=== PATIENT | male | born 1930 | race Caucasian/White ===

== ENCOUNTER 2018-03-12 19:57 | Observation (INO) | payer OTHER ==
[2018-03-12] MEDS ORDERED: FUROSEMIDE 40 MG/4 ML VIAL ONE (21:05)
[2018-03-12 21:26] LABS: Absolute Lymphocytes (CBC) 1.4 K/uL (0.7-4.9); Absolute Monocytes 0.8 K/uL (0.1-1.3); Absolute Neutrophil 5.1 K/uL (1.8-8.0); Basophils % 0.7 % (0-1.3); Eosinophils % 1.7 % (0-4.4); Lymphocytes % 19.1 % (15.3-44.8); MCH 31.2 pg (27.0-35.0); MCV 92.1 fL (80-100); MPV 10.2 fL (7.6-11.3); Monocytes % 10.6 % (3.3-12.3); RBC Red Blood Cell Count 4.13 M/uL (4.33-5.43)
[2018-03-12 21:28] LABS: Protime INR 1.1
[2018-03-12 21:32] LABS: Potassium 4.3 mEq/L (3.6-5.0)
[2018-03-12 21:38] LABS: Albumin 3.3 g/dL (3.2-5.5); Bilirubin Direct 0.2 mg/dL (0-0.2); Bilirubin Total 0.8 mg/dL (0.3-1.2); Protein, Total 5.9 g/dL (6.0-8.3)
--- NOTE | 2018-03-12 22:40 | ER ---
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 pt with swelling noted ak1 to bilateral lower legs. pt stated "just give me the water shot". Transition of care: patient was not received from another setting of care. Onset of symptoms was March 07, 2018. Risk Assessment: Do you want to hurt yourself or someone else? Patient reports no desire to harm self or others. Initial Sepsis Screen: Does the patient meet any 2 criteria? No. Patient's initial sepsis screen is negative. Does the patient have a suspected source of infection? No. Patient's initial sepsis screen is negative. Care prior to arrival: None. 20:07 Method Of Arrival: Wheelchair ak1 20:07 Acuity: KELSEY 3 ak1 20:[address] Middleton, Director Of Neurology Dr. Edmondson. ak1 Triage Assessment: 23:00 General: Appears uncomfortable. General: Behavior is calm, cooperative, appropriate for mb3 age. Respiratory: Onset: The symptoms/episode began/occurred gradually. Respiratory: Reports shortness of breath at rest the patient has moderate shortness of breath. Historical: - Allergies: 20:10 No Known Allergies; ak1 - Home Meds: 20:10 carvedilol 25 mg oral tab 2 times per day [Active]; Eliquis 2.5 mg oral tab 2 times per ak1 day [Active]; lisinopril 10 mg oral tab twice a day [Active]; aspirin 81 mg Oral chew 1 tab once daily [Active]; - PMHx: 20:10 CHF; Pacemaker; ak1 - PSHx: 20:10 Hernia repair; pacemaker/defib; ak1 - Immunization history:: Adult Immunizations unknown. - Social history:: Smoking status: Patient/guardian denies using tobacco. - Ebola Screening: : No symptoms or risks identified at this time. Screenin:58 Abuse screen: Denies threats or abuse. Nutritional screening: No deficits noted. mb3 Tuberculosis screening: No symptoms or risk factors identified. Fall Risk None identified. Assessment: 20:10 Respiratory: Airway. ak1 20:40 General: Appears uncomfortable, Behavior is calm, cooperative, appropriate for age. mb3 Pain: Complains of pain in right foot and left foot. Neuro: Level of Consciousness is awake, alert, obeys commands, Oriented to person, place, time, situation, Development And Housing Director are equal bilaterally. Cardiovascular: Reports shortness of breath, Denies chest pain, Heart tones present Capillary refill < 3 seconds Patient's skin is warm and dry. Pulses are palpable in right radial artery, right dorsalis pedis artery, left radial artery and left dorsalis pedis artery Rhythm is A-V sequential pacer. Respiratory: Airway is patent Respiratory effort is even, labored, Respiratory pattern is regular, symmetrical, Breath sounds are clear Breath sounds are diminished bilaterally. in right middle lobe, left lower lobe, right lower lobe, left posterior lower lobe, right posterior middle lobe and right posterior lower lobe. GI: No signs and/or symptoms were reported involving the gastrointestinal system. : No signs and/or symptoms were reported regarding the genitourinary system. EENT: No signs and/or symptoms were reported regarding the EENT system. Vital Signs: 20:07 BP 127 / 80; Pulse 96; Resp 20; Temp 98.4; Pulse Ox 96% on R/A; Weight 90.72 kg (R); ak1 Height 5 ft. 5 in. (165.10 cm); Pain 10/10; 21:17 BP 127 / 91; Pulse 81; Resp 20; Pulse Ox 97% on R/A; mb3 23:02 BP 127 / 92; Pulse 95; Resp 18; Pulse Ox 96% on R/A; mb3 20:07 Body Mass Index 33.28 (90.72 kg, 165.10 cm) ak1 ED Course: 20:00 Patient arrived in ED. es 20:01 Roderick Middleton DO is Private Physician. es 20:07 Layo Villanueva, SOFIYA is Primary Nurse. mb3 20:08 Triage completed. ak1 20:10 Arm band placed on Patient placed in an exam room, on a stretcher, Patient notified of ak1 wait time. 20:23 Michael Fatima MD is Attending Physician. kdr 21:42 X-ray completed. Portable x-ray completed in exam room. Patient tolerated procedure ag1 well. 21:45 XRAY Chest (1 view) In Process Unspecified. EDMS 22:39 Judith Dykes MD is Hospitalizing Provider. kdr 22:58 Patient has correct armband on for positive identification. Placed in gown. Bed in low mb3 position. Call light in reach. loan secretary on. Pulse ox on. NIBP on. 23:47 No provider procedures requiring assistance completed. Patient admitted, IV remains in mb3 place. Administered Medications: 21:10 Drug: Lasix 40 mg Route: IVP; Site: right forearm; mb3 22:55 Follow up: Response: No adverse reaction mb3 23:50 Follow up: Response: No adverse reaction mb3 Outcome: 22:40 Decision to Hospitalize by Provider. kdr 23:47 Admitted to Tele accompanied by tech, via wheelchair, room 202, with chart, Report mb3 called to Maddy Mera RN 23:47 Condition: stable 23:47 Instructed on the need for admit. 23:50 Patient left the ED. mb3 Signatures: Dispatcher [employer] Michael Olvera MD MD kdr Carrol Browning Amber, RN RN [email or web address] Sandra [email or web address] Layo Villanueva, RN RN mb3
--- NOTE | 2018-03-12 22:40 | EDPHYS ---
Physician Documentation [facility] Name: Javy Ferreira Age: 87 yrs Sex: Male : 1930 Arrival Date: 03/12/2018 Time: 20:00 Bed 15 Private MD: Roderick Middleton ED Physician Michael Fatima HPI: 03/12 23:51 This 87 yrs old Male presents to ER via Wheelchair with complaints of kdr Breathing Difficulty. 23:51 The patient has shortness of breath at rest, with light activity. Onset: The kdr symptoms/episode began/occurred gradually, 1 week(s) ago. Duration: The symptoms are continuous, and are steadily getting worse. The patient's shortness of breath is aggravated by coughing, exertion, light activity, walking, is alleviated by rest. The patient's shortness of breath is aggravated by is alleviated by. Associated signs and symptoms: Pertinent positives: Pertinent negatives: chest pain, productive cough, diaphoresis, dizziness, fever, hemoptysis, loss of consciousness, nausea, numbness in extremities, visual changes, vomiting. Severity of symptoms: At their worst the symptoms were mild moderate just prior to arrival, in the emergency department the symptoms are unchanged. The patient has experienced similar episodes in the past, multiple times. The patient has not recently seen a physician. Historical: - Allergies: 20:10 No Known Allergies; ak1 - Home Meds: 20:10 carvedilol 25 mg oral tab 2 times per day [Active]; Eliquis 2.5 mg oral tab 2 times per ak1 day [Active]; lisinopril 10 mg oral tab twice a day [Active]; aspirin 81 mg Oral chew 1 tab once daily [Active]; - PMHx: 20:10 CHF; Pacemaker; ak1 - PSHx: 20:10 Hernia repair; pacemaker/defib; ak1 - Immunization history:: Adult Immunizations unknown. - Social history:: Smoking status: Patient/guardian denies using tobacco. - Ebola Screening: : No symptoms or risks identified at this time. ROS: 23:51 Constitutional: Negative for fever, chills, and weight loss, Eyes: Negative for injury, kdr pain, redness, and discharge, ENT: Negative for injury, pain, and discharge, Neck: Negative for injury, pain, and swelling, Cardiovascular: Negative for chest pain, palpitations, and edema, Abdomen/GI: Negative for abdominal pain, nausea, vomiting, diarrhea, and constipation, Back: Negative for injury and pain, : Negative for injury, bleeding, discharge, and swelling, MS/Extremity: Negative for injury and deformity, Skin: Negative for injury, rash, and discoloration, Neuro: Negative for headache, weakness, numbness, tingling, and seizure activity. Psych: Negative for depression, anxiety, suicide ideation, homicidal ideation, and hallucinations, Allergy/Immunology: Negative for hives, rash, and allergies, Endocrine: Negative for neck swelling, polydipsia, polyuria, polyphagia, and marked weight changes, Hematologic/Lymphatic: Negative for swollen nodes, abnormal bleeding, and unusual bruising. 23:51 Respiratory: Positive for cough, dyspnea on exertion, shortness of breath, on exertion. Negative for hemoptysis, orthopnea. Exam: 23:51 Constitutional: This is a well developed, well nourished patient who is awake, alert, kdr and in no acute distress. Head/Face: Normocephalic, atraumatic. Eyes: Pupils equal round and reactive to light, extra-ocular motions intact. Lids and lashes normal. Conjunctiva and sclera are non-icteric and not injected. Cornea within normal limits. Periorbital areas with no swelling, redness, or edema. Neck: Trachea midline, no thyromegaly or masses palpated, and no cervical lymphadenopathy. Supple, full range of motion without nuchal rigidity, or vertebral point tenderness. No Meningismus. Chest/axilla: Normal chest wall appearance and motion. Nontender with no deformity. No lesions are appreciated. Cardiovascular: Regular rate and rhythm with a normal S1 and S2. No gallops, murmurs, or rubs. Normal PMI, no JVD. No pulse deficits. Abdomen/GI: Soft, non-tender, with normal bowel sounds. No distension or tympany. No guarding or rebound. No evidence of tenderness throughout. Back: No spinal tenderness. No costovertebral tenderness. Full range of motion. Skin: Warm, dry with normal turgor. Normal color with no rashes, no lesions, and no evidence of cellulitis. MS/ Extremity: Pulses equal, no cyanosis. Neurovascular intact. Full, normal range of motion. Neuro: Awake and alert, GCS 15, oriented to person, place, time, and situation. Cranial nerves II-XII grossly intact. Motor strength 5/5 in all extremities. Sensory grossly intact. Cerebellar exam normal. Normal gait. Psych: Awake, alert, with orientation to person, place and time. Behavior, mood, and affect are within normal limits. 23:51 Respiratory: the patient does not display signs of respiratory distress, Respirations: normal, Breath sounds: rales, rhonchi, that are mild, are heard diffusely. Vital Signs: 20:07 BP 127 / 80; Pulse 96; Resp 20; Temp 98.4; Pulse Ox 96% on R/A; Weight 90.72 kg (R); ak1 Height 5 ft. 5 in. (165.10 cm); Pain 10/10; 21:17 BP 127 / 91; Pulse 81; Resp 20; Pulse Ox 97% on R/A; mb3 23:02 BP 127 / 92; Pulse 95; Resp 18; Pulse Ox 96% on R/A; mb3 20:07 Body Mass Index 33.28 (90.72 kg, 165.10 cm) ak1 MDM: 22:40 Patient medically screened. kdr 23:51 Data reviewed: vital signs, nurses notes, lab test result(s), radiologic studies. kdr Counseling: I had a detailed discussion with the patient and/or guardian regarding: the historical points, exam findings, and any diagnostic results supporting the discharge/admit diagnosis, lab results, radiology results, the need for further work-up and treatment in the hospital. Physician consultation: Judith Dykes MD. 03/12 20:54 Order name: Basic Metabolic Panel; Complete Time: 22: [facility] 03/12 20:54 Order name: BNP; Complete Time: 22: [facility] 03/12 20:54 Order name: CBC with Diff; Complete Time: 22: [facility] 03/12 20:54 Order name: LFT's; Complete Time: 22: [facility] 03/12 20:54 Order name: Magnesium; Complete Time: 22:25 [facility] 03/12 20:54 Order name: PT-INR; Complete Time: 22: [facility] 03/12 20:54 Order name: Ptt, Activated; Complete Time: 22: [facility] 03/12 20:54 Order name: Troponin (emerg Dept Use Only); Complete Time: 22: [facility] 03/12 20:54 Order name: XRAY Chest (1 view) [facility] 03/12 20:54 Order name: EKG; Complete Time: 20:55 [facility] 03/12 20:54 Order name: Cardiac monitoring; Complete Time: 21:00 [facility] 03/12 20:54 Order name: EKG - Nurse/Tech [facility] 03/12 22:39 Order name: Urine Dipstick--Ancillary (enter results) 03/12 20:54 Order name: IV Saline Lock; Complete Time: 21: [facility] 03/12 20:54 Order name: Labs collected and sent; Complete Time: 21: [facility] 03/12 20:54 Order name: O2 Per Protocol; Complete Time: 21: [facility] 03/12 20:54 Order name: O2 Sat Monitoring; Complete Time: 21: [facility] 03/12 20:54 Order name: Urine Dipstick-Ancillary (obtain specimen) [facility] Administered Medications: 21:10 Drug: Lasix 40 mg Route: IVP; Site: right forearm; mb3 22:55 Follow up: Response: No adverse reaction mb3 23:50 Follow up: Response: No adverse reaction mb3 Disposition: 03/12/18 22:40 Hospitalization ordered by Judith Dykes for Observation. Preliminary diagnosis is CHF exacerbation. - Bed requested for Telemetry/MedSurg (observation). - Status is Observation. mb3 - Condition is Fair. - Problem is an acute exacerbation. - Symptoms have improved. UTI on Admission? No Signatures: Dispatcher [employer] EDDE Cheyenne Lynch RN RN Michael Fatima MD MD [facility] Nancy Noriega RN RN ak1 Layo Villanueva, RN RN mb3 Corrections: (The following items were deleted from the chart) 22:42 22:40 Hospitalization Ordered by Judith Dykes MD for Observation. Preliminary diagnosis is CHF exacerbation. Bed requested for Telemetry/MedSurg (observation). Status is Observation. Condition is Fair. Problem is an acute exacerbation. Symptoms have improved. UTI on Admission? No. kdr 23:50 22:42 03/12/2018 22:40 Hospitalization Ordered by Judith Dykes MD for Observation. mb3 Preliminary diagnosis is CHF exacerbation. Bed requested for Telemetry/MedSurg (observation). Status is Observation. Condition is Fair. Problem is an acute exacerbation. Symptoms have improved. UTI on Admission? No. mw
--- NOTE | 2018-03-12 22:41 | RAD REPORT ---
EXAM DESCRIPTION: Aleisha Single View03/12/2018 9:45 pm CLINICAL HISTORY: sob COMPARISON: January 2017 FINDINGS: The lungs appear clear of acute infiltrate. The heart is mildly to moderately enlarged. P acemaker leads are in place IMPRESSION: No acute abnormalities displayed
[2018-03-12 22:55] LABS: Urine Blood TRACE (NEG); Urine Glucose NEGATIVE (NEG); Urine Protein NEGATIVE (NEG); Urine Specific Gravity 1.015 (1.005-1.030)
--- NOTE | 2018-03-12 23:25 | P.HP ---
Certification for Inpatient Patient admitted to: Observation With expected LOS: <2 Midnights Practitioner: I am a practitioner with admitting privileges, knowledge of patient current condition, hospital course, and medical plan of care. Services: Services provided to patient in accordance with Admission requirements found in Title 42 Section 412.3 of the Code of Federal Regulations Patient History Date of Service: 03/12/18 Reason for admission: CHF exacerbartion History of Present Illness: Mr Ferreira is an 87 years old male with history of chronic systolic CHF with EF about 28%, HTN, Pacemaker placement anticoagulated with Eliquis due to A.Fib, who start noticing slowly increasing in lower extremity edema over the last 3-4 weeks. He denied SOB, but has had some cough with clear secretion. He denied chest pain. Within his home medication, he should take lasix 40 mg daily, but apparently, he has not been taking this medication. At my encounter, he was in non-distress, afebrile, O2 Sat 98% on RA, BP 123/89, CXR consitent with CHF, lab work remarkable for elevated BNP 1798 (similar to previous record) Allergies No Known Allergies Allergy (Verified 12/10/15 17:38) Home Medications: Carvedilol 25 mg PO BID 12/10/15 Furosemide 40 mg PO DAILY 12/10/15 Lisinopril 10 mg PO DAILY 12/10/15 Apixaban [Eliquis] 5 mg PO BID 01/12/17 Amoxicillin Trihydrate [Amoxil] 500 mg PO TID #15 capsule 01/17/17 Fluticasone/Salmeterol [Advair 250/50 Diskus] 1 puff IH BID #1 disk 01/17/17 - Past Medical/Surgical History Diabetic: No -: HTN -: SKIN CANCER -: PROSTATE CANCER -: PNEUMONIA -: SHINGLES X2 -: JUJU KNEE PROBLEMS/ INJECTIONS -: Chronic systolic CHF -: PACEMAKER -: HERNIA REPAIR - Family History Father -: Lung disease Mother -: Cancer Notes: breast cancer - Social History Alcohol use: No CD- Drugs: No Caffeine use: Yes Place of Residence: Home Review of Systems 10-point ROS is otherwise unremarkable Physical Examination - Physical Exam General: Alert, In no apparent distress HEENT: Atraumatic, PERRLA, Mucous membr. moist/pink, EOMI, Sclerae nonicteric Neck: Supple, 2+ carotid pulse no bruit, No LAD, Without JVD or thyroid abnormality Respiratory: Normal air movement, Crackles/rales (bibasilar rales) Cardiovascular: Regular rate/rhythm, Normal S1 S2 Gastrointestinal: Normal bowel sounds, No tenderness Musculoskeletal: No tenderness, Swelling (bilateral LE edema 2+) Integumentary: No rashes Neurological: Normal speech, Normal strength at 5/5 x4 extr, Normal tone, Normal affect Lymphatics: No axilla or inguinal lymphadenopathy - Studies Laboratory Data (last 24 hrs) 03/12/18 20:50: PT 13.0 H, INR 1.10, APTT 26.3 03/12/18 20:50: WBC 7.5, Hgb 12.9 L, Hct 38.0 L, Plt Count 134 L 03/12/18 20:50: B-Natriuretic Peptide 1798 H 03/12/18 20:50: Sodium 138, Potassium 4.3, BUN 30 H, Creatinine 1.30 H, Glucose 99, Magnesium 2.0, Total Bilirubin 0.8, AST 25, ALT 22, Alkaline Phosphatase 47 Assessment and Plan - Problems (Diagnosis) (1) Acute on chronic systolic CHF (congestive heart failure) Current Visit: Yes Status: Acute (2) HTN (hypertension) Onset Date: 06/06/16 Current Visit: No Status: Chronic Qualifiers: Hypertension type: essential hypertension Qualified Code(s): I10 - Essential (primary) hypertension - Plan The patient will be admitted to the hospital due to acute exacerbation of chronic systolic CHF. Will continue with IV lasix, consult cardiology team for medication adjustment, continue anticoagulation with eliquis. - Advance Directives Does patient have a Living Will: No Does patient have a Durable POA for Healthcare: No - Code Status/Comfort Care Code Status Assessed: Yes Code Status: Full Code
[2018-03-12] MEDS ORDERED: ONDANSETRON 4 MG/2 ML VIAL IV PRN (23:49)
[2018-03-12] MEDS ORDERED: ACETAMINOPHEN 500 MG TAB PO PRN (23:49)
[2018-03-13] MEDS: FUROSEMIDE 40 MG/4 ML VIAL IV SCH ×2 (00:44→09:22)
[2018-03-13 04:36] LABS: Absolute Lymphocytes (CBC) 1.9 K/uL (0.7-4.9); Absolute Monocytes 0.8 K/uL (0.1-1.3); Absolute Neutrophil 4.3 K/uL (1.8-8.0); Basophils % 0.9 % (0-1.3); Eosinophils % 2.4 % (0-4.4); Hematocrit 39.5 % (39.6-49.0); Lymphocytes % 26.2 % (15.3-44.8); MCH 30.9 pg (27.0-35.0); MCV 92.5 fL (80-100); MPV 10.1 fL (7.6-11.3); Monocytes % 10.6 % (3.3-12.3); RBC Red Blood Cell Count 4.27 M/uL (4.33-5.43)
[2018-03-13 04:58] LABS: Potassium 3.5 mEq/L (3.6-5.0)
[2018-03-13 05:09] VITALS: BMI 31.4
[2018-03-13] MEDS ORDERED: NA CHLORIDE 0.9% 250 ML ONE (05:48)
[2018-03-13] MEDS ORDERED: KCL 20 MEQ/100 mL IVPB 20 MEQ/100 ML BAG IV SCH (07:00)
--- NOTE | 2018-03-13 07:37 | P.DS ---
Admission Date: 03/12/18 Discharge Date: 03/13/18 Primary Care Provider: Dr. Middleton; Cardiology-Dr. Edmondson Disposition: DC HOME/HOME HEALTH CARE Discharge Condition: GOOD Reason for Admission: CHF exacerbartion Consultations: Cardiology-Dr. Rasmussen - Problems (1) Atrial fibrillation Current Visit: Yes Status: Chronic Qualifiers: Atrial fibrillation type: chronic Qualified Code(s): I48.2 - Chronic atrial fibrillation (2) Chronic anticoagulation Current Visit: Yes Status: Chronic (3) History of pacemaker Current Visit: Yes Status: Chronic (4) CHF (congestive heart failure) Current Visit: No Status: Acute (5) HTN (hypertension) Onset Date: 06/06/16 Current Visit: No Status: Chronic Qualifiers: Hypertension type: essential hypertension Qualified Code(s): I10 - Essential (primary) hypertension (6) Chronic renal disease Current Visit: Yes Status: Chronic Qualifiers: Chronic kidney disease stage: stage 2 (mild) Qualified Code(s): 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 Patient has a history of CHF, atrial fibrillation on chronic anti coagulation therapy and hypertension. Patient has not been compliant with his Lasix medication. Patient lives with his . has patient seen in the emergency room. Vital signs stable. Edema to the lower extremities were noted. Upon initial evaluation patient weighed about 200 lb. Patient was admitted for treatment. Hospital Course: During the course of his stay patient had acute on chronic systolic dysfunction congestive heart failure. Patient had not been compliant with his diuretic therapy. Patient was diuresed in the hospital. Patient weighed 200 lb upon initial evaluation. Patient was diuresed. Repeat weight at discharge around 182. Talking to the son, the patient has poor level of education. has dementia. Patient was seen and evaluated by Cardiology. No intervention is needed. Chest x-ray unremarkable. At discharge, edema to the lower extremity significantly improved. Therefore at discharge, home health and physical therapy will be arranged for CHF teaching, medication compliance and prevention of falls. At discharge the patient will continue with a 1500 cc per day fluid restriction and low-salt diet. At discharge patient will continue with Lasix 40 mg 1 pill once daily. Recommendation is to monitor his weight daily. If his weight increases by more than 5 lb he is to contact his PCP or air sampler to consider adjustment in medication. Future adjustments may be needed. CHF education was provided. Patient may follow up with cardiology in 1-2 weeks to follow up this hospitalization. Compliance with medications will need to be enforced. Patient has chronic atrial fibrillation on chronic anti coagulation therapy- Eliquis. Patient will continue with his rate control medication-carvedilol 25 mg 1 pill twice daily. Patient taking Eliquis 5 mg 1 pill twice daily. Patient also is a history of pacemaker. Overall stable. Patient has hypertension. Patient will continue with his medications at discharge. This includes lisinopril 10 mg 1 pill daily and carvedilol 25 mg 1 pill twice daily. Recommendation is to maintain blood pressures less 150/80. Further adjustment can be done by his PCP. Patient has mild anemia likely of chronic disease is to recheck CBC in 2-4 weeks to monitor his progress. Patient has chronic renal disease this can be monitored as an outpatient. Recommendation is to recheck BMP in 2-4 weeks to monitor his progress. Vital Signs/Physical Exam: Temp Pulse Resp BP Pulse Ox 97.0 F 77 18 132/88 96 03/13/18 04:00 03/13/18 04:00 03/13/18 04:00 03/13/18 04:00 03/13/18 04:00 General: Alert, In no apparent distress, Oriented x3, Cooperative HEENT: Atraumatic Neck: Supple Respiratory: Clear to auscultation bilaterally, Normal air movement Cardiovascular: Normal pulses, Regular rate/rhythm Gastrointestinal: Normal bowel sounds, Soft and benign, Non-distended, No tenderness, No masses, No rebound, No guarding Musculoskeletal: No erythema, No tenderness, No warmth Integumentary: Tenderness/swelling (Significant improvement in edema to the lower extremities. Less than 1+.) Neurological: Normal speech, Normal strength at 5/5 x4 extr, Normal tone, Normal affect Lymphatics: No axilla or inguinal lymphadenopathy Laboratory Data at Discharge: WBC 7.1 K/uL (4.3-10.9) 03/13/18 04:19 Hgb 13.2 g/dL (13.6-17.9) L 03/13/18 04:19 Hct 39.5 % (39.6-49.0) L 03/13/18 04:19 Plt Count 149 K/uL (152-406) L 03/13/18 04:19 PT 13.0 SECONDS (9.5-12.5) H 03/12/18 20:50 INR 1.10 03/12/18 20:50 APTT 26.3 SECONDS (24.3-36.9) 03/12/18 20:50 Sodium 141 mEq/L (135-145) 03/13/18 04:19 Potassium 3.5 mEq/L (3.6-5.0) L 03/13/18 04:19 BUN 27 mg/dL (6-20) H 03/13/18 04:19 Creatinine 1.29 mg/dL (0.61-1.24) H 03/13/18 04:19 Glucose 89 mg/dL (65-120) 03/13/18 04:19 Magnesium 2.0 mg/dL (1.8-2.5) 03/12/18 20:50 Total Bilirubin 0.8 mg/dL (0.3-1.2) 03/12/18 20:50 AST 25 IU/L (10-42) 03/12/18 20:50 ALT 22 IU/L (10-60) 03/12/18 20:50 Alkaline Phosphatase 47 IU/L (42-121) 03/12/18 20:50 B-Natriuretic Peptide 1798 pg/ml (<=100) H 03/12/18 20:50 Home Medications: Carvedilol 25 mg PO BID 12/10/15 Lisinopril 10 mg PO DAILY 12/10/15 Apixaban [Eliquis] 5 mg PO BID 01/12/17 Aspirin [Rashmi Chewable Aspirin] 81 mg PO DAILY 03/13/18 Furosemide [Lasix] 40 mg PO DAILY #30 tab 03/13/18 New Medications: Furosemide [Lasix] 40 mg PO DAILY #30 tab Patient Discharge Instructions: 1. Patient will need to follow up with his PCP in 1 week to follow up this hospitalization. 2. Patient presented with edema to the lower extremities secondary to acute on chronic CHF, systolic dysfunction with ejection fraction of 28%. Patient did well with diuresis in the hospital. At discharge home health will be arranged for CHF teaching, fluid restriction teaching, and medication compliance teaching. At discharge he will continue with a 1500 cc per day fluid restriction and low-salt diet. At discharge he will continue with Lasix 40 mg 1 pill once daily. He is to monitor his weight daily. If his weight increases by more than 5 lb, he is to contact his PCP or air sampler for further recommendation. Further adjustment in medication can be done by them. Compliance with medication will need to be enforced. 3. Patient has chronic atrial fibrillation on chronic anti coagulation therapy with history of pacemaker. Patient will continue with his medication including carvedilol 25 mg 1 pill twice daily and Eliquis 5 mg 1 pill twice daily. Patient will need to follow up with cardiology as directed. 4. Patient has hypertension. Patient will continue with his medications including lisinopril 10 mg 1 pill once daily and carvedilol 25 mg 1 pill twice daily. Recommendation is to maintain blood pressures less 150/80. Further adjustment can be done by his PCP. 5. Patient has mild anemia likely of chronic disease to recheck CBC in 2-4 weeks to monitor this. 6. Patient has mild chronic renal disease is to recheck BMP in 2-4 weeks to monitor his progress. Diet: AHA Activity: Fall precautions Time spent managing pt's care (in minutes): 55
[2018-03-13 07:44] VITALS: BP 140/91; TEMP 97.3
[2018-03-13] MEDS ORDERED: APIXABAN 5 MG TABLET PO SCH (09:00)
[2018-03-13] MEDS ORDERED: CARVEDILOL 25 MG TAB PO SCH (09:00)
[2018-03-13 11:28] VITALS: O2SAT 98
--- NOTE | 2018-03-14 06:04 | CON ---
Date of Consultation: 03/13/[address] Ospina on 03/12/2018. The patient was seen by me on 03/13/2018. Reason For Consultation: Congestive heart failure. History Of Present Illness: Mr. Ferreira is an 87-year-old male ejection fraction of 25% wit h AICD and pacemaker. That echo was done in January 2017. He came in with congestive heart failure. BNP was 1798. His creatinine was 1.29, potassium of 3.5. He has already been diuresed and is feelin g back to normal and wanting to go home. Past Medical History: Includes atrial fibrillation, congestive heart failure. Medications: At home include aspirin, Eliquis, Coreg, and lisinopril. Review of Systems: Negative. Social History: Negative. Family History: Noncontributory. Physical Examination: General: He was pleasant. In no acute distress. Atrial fibrillation, controlled rate. HEENT: Negative. Neck: Supple. No bruit. Chest: Clear. Cardiac: Revealed atrial fibrillation. Abdomen: Benign. Extremities: Revealed trace edema. Diagnostic Data: As stated earlier. Impression And Plan: 1.Acute exacerbation of chronic systolic congestive heart failure. 2.Atrial fibrillation that is chronic. 3.Status post AICD and pacemaker. 4.Renal insufficiency, elevated BNP and hypokalemia. All of which have been treated and stable. I agree with Mr. Ferreira's medical regimen. I think he is free to go home, and he should follow up with Dr. Edmondson in the near future. BRENDA/MODL Voice ID: [id number] Report ID: [id number]
== END 2018-03-13 11:33 | disposition home health service (06) ==
LOC: ER 19:57 → ERHOLD 22:41 → 2ND 23:28
PROVIDERS: ADMIT Internal Medicine; ATTEND Internal Medicine
DX: I13.0 Hypertensive heart and chronic kidney disease with heart failure and stage 1 through stage 4 chronic kidney disease, or unspecified chronic kidney disease (principal); I50.23 Acute on chronic systolic (congestive) heart failure; N18.2 Chronic kidney disease, stage 2 (mild); D63.1 Anemia in chronic kidney disease; I48.2 Chronic atrial fibrillation; Z79.01 Long term (current) use of anticoagulants; Z95.0 Presence of cardiac pacemaker; Z85.46 Personal history of malignant neoplasm of prostate; Z85.828 Personal history of other malignant neoplasm of skin; Z91.14 Patient's other noncompliance with medication regimen
CPT/HCPCS: 36415; 71045; 80048 ×2; 80076; 81003; 83735; 83880; 84484; 85025 ×2; 85610; 85730; 96374; 97163; 99285; G0378 ×2

== ENCOUNTER 2018-08-14 11:14 | Emergency (ER) | payer OTHER ==
[2018-08-14 12:08] LABS: Absolute Lymphocytes (CBC) 0.9 K/uL (0.7-4.9); Absolute Monocytes 0.5 K/uL (0.1-1.3); Absolute Neutrophil 6.2 K/uL (1.8-8.0); Basophils % 0.6 % (0-1.3); Eosinophils % 0.2 % (0-4.4); Hematocrit 44.6 % (39.6-49.0); Lymphocytes % 11.7 % (15.3-44.8); MCH 30.8 pg (27.0-35.0); MCV 92.3 fL (80-100); MPV 10.7 fL (7.6-11.3); RBC Red Blood Cell Count 4.83 M/uL (4.33-5.43)
[2018-08-14 12:24] LABS: Protime INR 0.94
[2018-08-14 12:25] LABS: Albumin 3.6 g/dL (3.4-5.0); Bilirubin Direct 0.1 mg/dL (0-0.2); Bilirubin Total 0.6 mg/dL (0.2-1.0); Potassium 4.2 mmol/L (3.5-5.1); Protein, Total 7.5 g/dL (6.4-8.2)
--- NOTE | 2018-08-14 12:27 | RAD REPORT ---
EXAM DESCRIPTION: RAD - Chest Pa And Lat (2 Views) - 08/14/2018 12:04 pm CLINICAL HISTORY: R side rib pain Chest pain. COMPARISON: Chest Single View dated 03/12/2018; Chest Pa And Lat (2 Views) dated 01/14/2017; Chest Sing le View dated 01/12/2017; Chest Pa And Lat (2 Views) dated 06/06/2016 FINDINGS: The lungs are emphysematous but clear. The heart is upper limit normal in size with multil ead pacer/defibrillator device present. No displaced fractures. IMPRESSION: COPD.
--- NOTE | 2018-08-14 12:53 | RAD REPORT ---
EXAM DESCRIPTION: CT - Chest Abdomen Pelvis W Cont - 08/14/2018 12:37 pm CLINICAL HISTORY: Chest and abdomen pain. R side abd/chest pain COMPARISON: No comparisons TECHNIQUE: Approximately 100 mL nonionic IV contrast was administered to the patient. All CT scans are performed using dose optimization technique as appropriate and may include automated exposure control or mA/KV adjustment according to patient size. FINDINGS: Emphysematous changes are present throughout the lungs.The heart is enlarged with pacer wi res present.No pleural or pericardial effusion.No intrathoracic adenopathy. The liver, spleen, pancreas, adrenal glands and kidneys are within normal limits. No bowel obstruction, free air, free fluid or abscess. The appendix is not identified as a discrete s tructure, however, no secondary findings of appendicitis are identified. No pathologic lymphadenopa thy in the abdomen or pelvis. Moderate lumbar degenerative changes. Prominent degenerative scoliosis is noted of the lumbar spine. Aortic atherosclerosis. IMPRESSION: No acute abnormality is discerned. Diffuse COPD.
--- NOTE | 2018-08-14 13:21 | EDPHYS ---
Physician Documentation [facility] Name: Javy Ferreira Age: 88 yrs Sex: Male : 1930 Arrival Date: 08/14/2018 Time: 11:16 Bed 24 Private MD: Roderick Middleton ED Physician Steven Baez HPI: 08/14 12:05 This 88 yrs old Male presents to ER via Ambulatory with complaints of Rib wa Pain. 12:05 The patient complains of pain in the c/o R side lower rib pain. denies known injury. wa The pain does not radiate. Onset: The symptoms/episode began/occurred 3 day(s) ago. Modifying factors: The symptoms are alleviated by walking around, the symptoms are aggravated by laying down on that side. Associated signs and symptoms: Pertinent negatives: diarrhea, dizziness, dysuria, fever, headache, hematuria, pain radiating to the lower extremities, vomiting, cough, SOB. Severity of pain: At its worst the pain was moderate in the emergency department the pain is unchanged. The patient has not experienced similar symptoms in the past. The patient has not recently seen a physician. Historical: - Allergies: 11:23 No Known Allergies; jl7 - Home Meds: 11:23 aspirin 81 mg Oral chew 1 tab once daily [Active]; carvedilol 25 mg Oral tab 2 times jl7 per day [Active]; Eliquis 2.5 mg Oral tab 2 times per day [Active]; lisinopril 10 mg Oral tab twice a day [Active]; Furosemide Oral [Active]; - PMHx: 11:23 CHF; Pacemaker; Prostates Cancer; jl7 - Immunization history:: Adult Immunizations not up to date. - Social history:: Smoking status: Patient/guardian denies using tobacco. - Ebola Screening: : No symptoms or risks identified at this time. - Family history:: not pertinent. - Hospitalizations: : No recent hospitalization is reported. ROS: 12:07 Constitutional: Negative for fever, chills, and weight loss, Eyes: Negative for injury, wa pain, redness, and discharge, ENT: Negative for injury, pain, and discharge, Neck: Negative for injury, pain, and swelling, Cardiovascular: Negative for chest pain, palpitations, and edema, Respiratory: Negative for shortness of breath, cough, wheezing, and pleuritic chest pain, Back: Negative for injury and pain, : Negative for injury, bleeding, discharge, and swelling, MS/Extremity: Negative for injury and deformity, Skin: Negative for injury, rash, and discoloration, Neuro: Negative for headache, weakness, numbness, tingling, and seizure, Psych: Negative for depression, anxiety, suicide ideation, homicidal ideation, and hallucinations. 12:07 Abdomen/GI: Negative for abdominal pain, nausea, vomiting, diarrhea, and constipation. 12:07 All other systems are negative. Exam: 12:07 Constitutional: This is a well developed, well nourished patient who is awake, alert, wa and in no acute distress. Head/Face: Normocephalic, atraumatic. Eyes: Pupils equal round and reactive to light, extra-ocular motions intact. Lids and lashes normal. Conjunctiva and sclera are non-icteric and not injected. Cornea within normal limits. Periorbital areas with no swelling, redness, or edema. ENT: Nares patent. No nasal discharge, no septal abnormalities noted. Tympanic membranes are normal and external auditory canals are clear. Oropharynx with no redness, swelling, or masses, exudates, or evidence of obstruction, uvula midline. Mucous membranes moist. Neck: Trachea midline, no thyromegaly or masses palpated, and no cervical lymphadenopathy. Supple, full range of motion without nuchal rigidity, or vertebral point tenderness. No Meningismus. Chest/axilla: Normal chest wall appearance and motion. Nontender with no deformity. No lesions are appreciated. Cardiovascular: Regular rate and rhythm with a normal S1 and S2. No gallops, murmurs, or rubs. Normal PMI, no JVD. No pulse deficits. Respiratory: Lungs have equal breath sounds bilaterally, clear to auscultation and percussion. No rales, rhonchi or wheezes noted. No increased work of breathing, no retractions or nasal flaring. Back: No spinal tenderness. No costovertebral tenderness. Full range of motion. Skin: Warm, dry with normal turgor. Normal color with no rashes, no lesions, and no evidence of cellulitis. MS/ Extremity: Pulses equal, no cyanosis. Neurovascular intact. Full, normal range of motion. Neuro: Awake and alert, GCS 15, oriented to person, place, time, and situation. Cranial nerves II-XII grossly intact. Motor strength 5/5 in all extremities. Sensory grossly intact. Cerebellar exam normal. Normal gait. Psych: Awake, alert, with orientation to person, place and time. Behavior, mood, and affect are within normal limits. 12:07 Abdomen/GI: Inspection: abdomen appears normal, Bowel sounds: normal, Palpation: moderate abdominal tenderness, in the right upper quadrant. Vital Signs: 11:23 BP 147 / 81; Pulse 91; Resp 16 S; Temp 97.8(O); Pulse Ox 98% on R/A; Weight 81.65 kg jl7 (R); Height 5 ft. 4 in. (162.56 cm) (R); Pain 8/10; 13:49 BP 152 / 75; Pulse 92; Resp 20; Pulse Ox 97% on R/A; aj1 11:23 Body Mass Index 30.90 (81.65 kg, 162.56 cm) jl7 MDM: 11:25 Patient medically screened. wa 12:08 Differential diagnosis: non-tender to palp on rib cage. no deformity, rash or wa tenderness noted on chest wall palpation. RUQ tender to palpation however. will work up and reassess. 13:18 Data reviewed: vital signs, nurses notes, lab test result(s), radiologic studies. Test wa interpretation: by ED physician or midlevel provider: labs noted wnl except renal insufficiency. CXR noted for emphesema. CT chest/ abd/pelvis: no acute process. Response to treatment: the patient's symptoms have mildly improved after treatment. ED course: will d/c with pain control and close f/u. advised return for reeval if worsening. 08/14 11:43 Order name: BMP; Complete Time: 13:08/14 11:43 Order name: CBC with Diff; Complete Time: 13:08/14 11:43 Order name: XRAY Chest Pa And Lat (2 Views); Complete Time: :08/14 11:43 Order name: Hepatic Function; Complete Time: 13:08/14 11:43 Order name: PT-INR; Complete Time: 13:08/14 12:09 Order name: Lipase; Complete Time: 13:08/14 11:43 Order name: Cardiac monitoring; Complete Time: 13:08/14 11:43 Order name: IV Saline Lock; Complete Time: 12:05 wi 08/14 11:43 Order name: Labs collected and sent; Complete Time: 12:05 wi 08/14 11:43 Order name: CT Chest, Abdomen, Pelvis - W/Contrast; Complete Time: 13:07 wi Administered Medications: 13:46 Drug: Tylenol 1000 mg Route: PO; [facility] 13:47 Follow up: Response: No adverse reaction aj Disposition: 08/14/18 13:20 Discharged to Home. Impression: Acute Right side rib and flank pain. - Condition is Stable. - Discharge Instructions: Flank Pain, [id number]. - Medication Reconciliation Form, Thank You Letter, Antibiotic Education, Prescription Opioid Use form. - Follow up: Private Physician; When: 2 - 3 days; Reason: Re-evaluation by your physician. - Problem is new. - Symptoms have improved. - Notes: take two extra-strength tylenol for pain as needed 2 to 3 times a day as needed. see your doctor within 2-3 days for further evaluation. return to ER immediately for any worsening concerns Signatures: Dispatcher [employer] EDMS Nancy Morales RN RN aj1 David Crowley RN RN jl7 Steven Baez MD MD wi Corrections: (The following items were deleted from the chart) 13:46 11:43 EKG - Nurse/Tech ordered. [facility] 13:51 13:20 08/14/2018 13:20 Discharged to Home. Impression: Acute Right side rib and flank aj1 pain. Condition is Stable. Forms are Medication Reconciliation Form, Thank You Letter, Antibiotic Education, Prescription Opioid Use. Follow up: Private Physician; When: 2 - 3 days; Reason: Re-evaluation by your physician. Problem is new. Symptoms have improved. wi
--- NOTE | 2018-08-14 13:21 | ER ---
Nurse's Notes [facility] Name: Javy Ferreira Age: 88 yrs Sex: Male : 1930 Arrival Date: 08/14/2018 Time: 11:16 Bed 24 Private MD: Roderick Middleton Diagnosis: Acute Right side rib and flank pain Presentation: 08/14 11:19 Presenting complaint: Patient states: right rib pain started 3 days ago and got worse jl7 last night. Transition of care: patient was not received from another setting of care. Onset of symptoms was August 12, 2018. Risk Assessment: Do you want to hurt yourself or someone else? Patient reports no desire to harm self or others. Initial Sepsis Screen: Does the patient meet any 2 criteria? No. Patient's initial sepsis screen is negative. Does the patient have a suspected source of infection? No. Patient's initial sepsis screen is negative. Care prior to arrival: None. 11:19 Method Of Arrival: Ambulatory jl7 11:19 Acuity: KELSEY 4 jl7 11:54 Acuity: KELSEY 3 iw Historical: - Allergies: 11:23 No Known Allergies; jl7 - Home Meds: 11:23 aspirin 81 mg Oral chew 1 tab once daily [Active]; carvedilol 25 mg Oral tab 2 times jl7 per day [Active]; Eliquis 2.5 mg Oral tab 2 times per day [Active]; lisinopril 10 mg Oral tab twice a day [Active]; Furosemide Oral [Active]; - PMHx: 11:23 CHF; Pacemaker; Prostates Cancer; jl7 - Immunization history:: Adult Immunizations not up to date. - Social history:: Smoking status: Patient/guardian denies using tobacco. - Ebola Screening: : No symptoms or risks identified at this time. - Family history:: not pertinent. - Hospitalizations: : No recent hospitalization is reported. Screenin:35 Abuse screen: Denies threats or abuse. Denies injuries from another. Nutritional aj1 screening: No deficits noted. Tuberculosis screening: No symptoms or risk factors identified. 12:50 Fall Risk None identified. aj1 Assessment: 12:35 Reassessment: Patient taken to CT. aj1 12:50 General: Appears in no apparent distress. comfortable, Behavior is calm, cooperative, aj1 appropriate for age. 12:50 Pain: Complains of pain in right upper quadrant Pain does not radiate. Pain: Pain aj1 currently is 5 out of 10 on a pain scale. Neuro: Level of Consciousness is awake, alert, obeys commands. Cardiovascular: Heart tones S1 S2 present Patient's skin is warm and dry. Respiratory: Airway is patent Respiratory effort is even, unlabored, Respiratory pattern is regular, symmetrical, Breath sounds are clear bilaterally. GI: No signs and/or symptoms were reported involving the gastrointestinal system. : No signs and/or symptoms were reported regarding the genitourinary system. EENT: No signs and/or symptoms were reported regarding the EENT system. Derm: No signs and/or symptoms reported regarding the dermatologic system. Skin is pink, warm \T\ dry. normal. Musculoskeletal: No signs and/or symptoms reported regarding the musculoskeletal system. Circulation, motion, and sensation intact. 13:49 Reassessment: Patient appears in no apparent distress at this time. No changes from aj1 previously documented assessment. Patient and/or family updated on plan of care and expected duration. Pain level reassessed. Patient is alert, oriented x 3, equal unlabored respirations, skin warm/dry/pink. Vital Signs: 11:23 BP 147 / 81; Pulse 91; Resp 16 S; Temp 97.8(O); Pulse Ox 98% on R/A; Weight 81.65 kg jl7 (R); Height 5 ft. 4 in. (162.56 cm) (R); Pain 8/10; 13:49 BP 152 / 75; Pulse 92; Resp 20; Pulse Ox 97% on R/A; aj1 11:23 Body Mass Index 30.90 (81.65 kg, 162.56 cm) jl7 ED Course: 11:16 Patient arrived in ED. as 11:17 Roderick Middleton DO is Private Physician. as 11:20 Triage completed. jl7 11:23 Arm band placed on right wrist. jl7 11:25 Steven Baez MD is Attending Physician. wa 11:51 Patient moved to radiology via wheelchair. ag1 11:51 Leslee Bolaños, SOFIYA is Primary Nurse. iw 11:54 Initial lab(s) drawn, by me, sent to lab. Inserted saline lock: 20 gauge in right iw antecubital area, using aseptic technique. Blood collected. 12:00 X-ray completed. Patient tolerated procedure well. Patient moved back from radiology. 1 12:01 XRAY Chest Pa And Lat (2 Views) In Process Unspecified. EDMS 12:30 Report received from Judson Bolaños RN. aj1 12:[address] sj 12:35 Patient has correct armband on for positive identification. Bed in low position. Call aj1 light in reach. Side rails up X 1. 12:35 No provider procedures requiring assistance completed. aj1 12:37 CT Chest, Abdomen, Pelvis - W/Contrast In Process Unspecified. EDMS 12:39 CT completed. Patient tolerated procedure well. Patient moved back from CT. sj 13:49 IV discontinued, intact, bleeding controlled, No redness/swelling at site. Pressure aj1 dressing applied. Administered Medications: 13:46 Drug: Tylenol 1000 mg Route: PO; aj1 13:47 Follow up: Response: No adverse reaction aj1 Outcome: 13:20 Discharge ordered by . nj 13:51 Discharged to home ambulatory, with family. aj1 13:51 Condition: good 13:51 Discharge instructions given to patient, family, Instructed on discharge instructions, follow up and referral plans. Demonstrated understanding of instructions, follow-up care. 13:51 Patient left the ED. aj1 Signatures: Dispatcher [employer] EDMS Nancy Morales RN RN aj1 Cheyenne Rcoha 1 Edwige Aguayo Amelia as Williams, Irene, Sandra Cooley RN 1 David Crowley RN RN jl7 Steven Baez MD MD wa Corrections: (The following items were deleted from the chart) 13:17 12:35 BP 150 / 89; Pulse 77bpm; Resp 20bpm; Pulse Ox 97% RA; aj1 aj1 13:17 12:35 General: Appears uncomfortable, Behavior is cooperative, restless, aj1 aj1 13:17 12:35 Pain: Complains of pain in posterior aspect of left lateral abdomen and posterior aj1 aspect of right lateral abdomen Pain currently is 10 out of 10 on a pain scale. aj1 13:17 12:35 Neuro: Level of Consciousness is awake, alert, obeys commands, aj1 aj1 13:17 12:35 Cardiovascular: Patient's skin is warm and dry. aj1 aj1 13:17 12:35 Respiratory: Airway is patent Respiratory effort is even, unlabored, Respiratory aj1 pattern is regular, symmetrical, aj1 : 12:35 GI: No signs and/or symptoms were reported involving the gastrointestinal system. aj1 aj1 : 12:35 : Reports flank pain, history of kidney stones, this feels similar to previous aj1 kidney stones. aj1 : 12:35 EENT: No signs and/or symptoms were reported regarding the EENT system. aj1 aj1 : 12:35 Derm: No signs and/or symptoms reported regarding the dermatologic system. Skin aj1 is flushed, aj1 : 12:35 Musculoskeletal: No signs and/or symptoms reported regarding the musculoskeletal aj1 system. Circulation, motion, and sensation intact. aj1 13:36 13:24 General: Appears in no apparent distress. comfortable, Behavior is calm, aj1 cooperative, appropriate for age, aj1
[2018-08-14] MEDS ORDERED: ACETAMINOPHEN 500 MG TAB ONE (13:49)
[2018-08-14 13:58] VITALS: TEMP 97.8
[2018-08-14 13:59] VITALS: BP 152/75; O2SAT 97
== END 2018-08-14 13:51 | disposition home or self-care (01) ==
LOC: ER 11:14
DX: R10.9 Unspecified abdominal pain (principal); I50.9 Heart failure, unspecified; Z79.01 Long term (current) use of anticoagulants; Z79.82 Long term (current) use of aspirin; Z85.46 Personal history of malignant neoplasm of prostate; Z95.0 Presence of cardiac pacemaker
CPT/HCPCS: 36415; 71046; 71260; 74177; 80048; 80076; 83690; 85025; 85610; Q9967; 99284

== ENCOUNTER 2021-03-17 10:29 | Emergency (ER) | payer OTHER ==
--- OUTSIDE RECORDS SUMMARY | 2021-03-17 10:31 | XMS REPORT | Continuity of Care Document ---
:1930 Author Organization [facility] t Address [address] [place] [address] Care Team Providers Name Role Phone Saskia PICKENS L Attending Clinician Payers Payer Name Policy Type Policy Number Effective Date Expiration Date S ource Problems This patient has no known problems. Allergies, Adverse Reactions, Alerts Allergy Allergy Status Severity Reaction(s) Onset Inactive Treating Comm ents Source Name Type Date Date Clinician No Known DA Active U 2012-10 [facility] All[facility]ie 12-02 [facility] 00:00: [address] Medications This patient has no known medications. Procedures This patient has no known procedures. Encounters Start End Encounter Admission Attending Care Care Encounter Source Date/Time Date/Time Type Type Clinicians Facility Department ID 2020-07-23 2020-07-23 Office FRANK Kruger [id number] 12:45[facility]17 [id number] [id number] Specialti [id number] [address] [place] Results Test Description Test Time Test Comments Results Result Comments Source BASIC METABOLIC PANEL 2020-04-16 13:18:00 Test Item Value Reference Range Interpretation Comme nts SODIUM (test code = NA) 136 MMOL/L 137-145 L POTASSIUM (test code = K) 3.8 MMOL/L 3.5-5.1 N CHLORIDE (test code = CL) 101 MMOL/L 98-107 N CARBON DIOXIDE (test code = CO2) 30 MMOL/L 22-30 N GLUCOSE (test code = GLU) 99 MG/DL 74-106 N BLOOD UREA NITROGEN (test code = 27 MG/DL 9-20 H BUN) GLOMERULAR FILTRATION RATE (test 52 Reporting units: ml/min/1.73 code = GFR) m2 (Modified M DRD Formula)Referen ce Range: > or = 60 ml/min/1.7 3 m2 CREATININE (test code = CREAT) 1.30 MG/DL 0.66-1.25 H CALCIUM (test code = CA) 8.4 MG/DL 8.4-10.2 N [id number] 13:18:00 Test Item Value Reference Range Interpretation Comments MAGNESIUM (test code = MAG) 2.2 MG/DL 1.6-2.3 N BASIC METABOLIC [id number] 13:07:00 Test Item Value Reference Range Interpretation Comments SODIUM (test code = 136 MMOL/L 137-145 L NA) POTASSIUM (test code = 3.8 MMOL/L 3.5-5.1 N K) CHLORIDE (test code = 101 MMOL/L 98-107 N CL) CARBON DIOXIDE (test 30 MMOL/L 22-30 N code = CO2) GLUCOSE (test code = MG/DL 74-106 GLU) BLOOD UREA NITROGEN MG/DL 9-20 (test code = BUN) GLOMERULAR FILTRATION 52 Report ing units: RATE (test code = GFR) ml/mi n/1.73 m2 (Modified MDRD Formula)Referen ce Range: > or = 6 0 ml/min/1.73 m2 CREATININE (test code 1.30 MG/DL 0.66-1.25 H = CREAT) CALCIUM (test code = MG/DL 8.7-9.7 CA) [id number] 13:07:00 Test Item Value Reference Range Interpretation Comments MAGNESIUM (test code = MAG) MG/DL 1.6-2.3 BASIC METABOLIC [id number] 13:05:00 Test Item Value Reference Range Interpretation Comments SODIUM (test code = NA) 136 MMOL/L 137-145 L POTASSIUM (test code = K) 3.8 MMOL/L 3.5-5.1 N CHLORIDE (test code = CL) 101 MMOL/L 98-107 N CARBON DIOXIDE (test code = CO2) MMOL/L 22-30 GLUCOSE (test code = GLU) MG/DL 74-106 BLOOD UREA NITROGEN (test code = MG/DL 9-20 BUN) GLOMERULAR FILTRATION RATE (test code = GFR) CREATININE (test code = CREAT) MG/DL 0.66-1.25 CALCIUM (test code = CA) MG/DL 8.7-9.7 [id number] 13:05:00 Test Item Value Reference Range Interpretation Comments MAGNESIUM (test code = MAG) MG/DL 1.6-2.3 BASIC METABOLIC [id number] 13:04:00 Test Item Value Reference Range Interpretation Comments SODIUM (test code = NA) 136 MMOL/L 137-145 L POTASSIUM (test code = K) MMOL/L 3.5-5.1 CHLORIDE (test code = CL) 101 MMOL/L 98-107 N CARBON DIOXIDE (test code = CO2) MMOL/L 22-30 GLUCOSE (test code = GLU) MG/DL 74-106 BLOOD UREA NITROGEN (test code = MG/DL 9-20 BUN) GLOMERULAR FILTRATION RATE (test code = GFR) CREATININE (test code = CREAT) MG/DL 0.66-1.25 CALCIUM (test code = CA) MG/DL 8.7-9.7 [id number] 13:04:00 Test Item Value Reference Range Interpretation Comments MAGNESIUM (test code = MAG) MG/DL 1.6-2.3 PROTHROMBIN [id number] 12:55:00 Test Item Value Reference Range Interpretation Comments PROTHROMBIN TIME 12.1 SECONDS 9.4-12.5 N PATIENT (test code = PTP) INTERNATIONAL NORMAL 1.1 The INR is to be RATIO (test code = used only for INR) monitoring oral anticoagulantth erap y. INDICATION I NR VALUE ---- ---- ---- -------1. Prophylaxis, de ep venous thrombos is, including hig h risk surgery. 2.0 - 3.0 2. Prophylaxis, de ep venous thrombos is, hip surgery, treatment for d eep venous thrombosis or pulmonary prevention of systemic emboli sm in patients wit h valvular heart disease, atrial fibrillation, tissue heart va lve, or acute myocar dial infarction. 2.0 - 3 .0 3. Mechanical prosthesis hear t valves, recurrent syste yair embolism. 3.0 - 4.5 CBC W/AUTO [id number] 12:46:00 Test Item Value Reference Range Interpretation Comments WHITE BLOOD CELL (test code = 7.4 K/MM3 3.8-9.8 N WBC) RED BLOOD CELL (test code = 4.83 M/MM3 3.95-5.67 N RBC) HEMOGLOBIN (test code = HGB) 14.9 G/DL 12.4-16.7 N HEMATOCRIT (test code = HCT) 45.9 % 35.9-49.5 N MEAN CELL VOLUME (test code = 95 fL 81.7-96.1 N MCV) MEAN CELL HGB (test code = MCH) 30.8 pg 27.6-33.2 N MEAN CELL HGB CONCETRATION 32.5 % 32.9-35.5 L (test code = MCHC) RED CELL DISTRIBUTION WIDTH 14.0 % 12.1-15.2 N (test code = RDW) PLATELET COUNT (test code = 148 K/MM3 129-368 N PLT) MEAN PLATELET VOLUME (test code 11.5 fl 7.4-10.4 H = MPV) NEUTROPHIL % (test code = NT%) 60.0 % 43-75 N IMMATURE GRANULOCYTE % (test 0.3 % 0.0-2.0 N code = IG%) LYMPHOCYTE % (test code = LY%) 28.4 % 14-44 N MONOCYTE % (test code = MO%) 9.2 % 4-13 N EOSINOPHIL % (test code = EO%) 1.6 % 0-6 N BASOPHIL % (test code = BA%) 0.5 % 0-2 N NUCLEATED RBC % (test code = 0.0 % 0-1.0 N NRBC%) NEUTROPHIL # (test code = NT#) 4.42 K/mm3 2.0-7.6 N IMMATURE GRANULOCYTE # (test 0.02 x10 3/uL 0-0.03 N code = IG#) LYMPHOCYTE # (test code = LY#) 2.09 K/mm3 1.0-3.8 N MONOCYTE # (test code = MO#) 0.68 K/mm3 0.1-0.8 N EOSINOPHIL # (test code = EO#) 0.12 K/mm3 0.0-0.2 N BASOPHIL # (test code = BA#) 0.04 K/mm3 0.0-0.2 N NUCLEATED RBC # (test code = 0.00 K/mm3 0.0-0.1 N NRBC#) Coronavirus 2018 nCoV [id number] 13:51:00 Test Item Value Reference Range Interpretation Comments Coronavirus 2019 nCoV Bedside (test Negative Negative code = COVNONPUIBED) Has this test been approved(Y/N)? YESComments to [employer] Patching Machine Operator: [facility] [id number] 06:05:00 Test Item Value Reference Range Interpretation Comments SODIUM (test code = 136 MMOL/L 137-145 L NA) POTASSIUM (test code = 3.9 MMOL/L 3.5-5.1 N K) CHLORIDE (test code = 103 MMOL/L 98-107 N CL) CARBON DIOXIDE (test 25 MMOL/L 22-30 N code = CO2) ANION GAP (test code = 12 MMOL/L 14-24 L GAP) GLUCOSE (test code = 92 MG/DL 74-106 N GLU) BLOOD UREA NITROGEN 19 MG/DL 9-20 (test code = BUN) GLOMERULAR FILTRATION > 60 Report ing units: RATE (test code = GFR) ml/mi n/1.73 m2 (Modified MDRD Formula)Referen ce Range: > or = 6 0 ml/min/1.73 m2 CREATININE (test code 1.10 MG/DL 0.66-1.25 = CREAT) CALCIUM (test code = 8.1 MG/DL 8.4-10.2 L CA) BASIC METABOLIC [id number] 06:02:00 Test Item Value Reference Range Interpretation Comments SODIUM (test code = NA) 136 MMOL/L 137-145 L POTASSIUM (test code = K) 3.9 MMOL/L 3.5-5.1 N CHLORIDE (test code = CL) 103 MMOL/L 98-107 N CARBON DIOXIDE (test code = CO2) MMOL/L 22-30 GLUCOSE (test code = GLU) MG/DL 74-106 BLOOD UREA NITROGEN (test code = MG/DL 9-20 BUN) GLOMERULAR FILTRATION RATE (test code = GFR) CREATININE (test code = CREAT) MG/DL 0.66-1.25 CALCIUM (test code = CA) MG/DL 8.7-9.7 BASIC METABOLIC [id number] 06:01:00 Test Item Value Reference Range Interpretation Comments SODIUM (test code = NA) MMOL/L 137-145 POTASSIUM (test code = K) MMOL/L 3.5-5.1 CHLORIDE (test code = CL) 103 MMOL/L 98-107 N CARBON DIOXIDE (test code = CO2) MMOL/L 22-30 GLUCOSE (test code = GLU) MG/DL 74-106 BLOOD UREA NITROGEN (test code = MG/DL 9-20 BUN) GLOMERULAR FILTRATION RATE (test code = GFR) CREATININE (test code = CREAT) MG/DL 0.66-1.25 CALCIUM (test code = CA) MG/DL 8.7-9.7 CBC W/AUTO [id number] 05:51:00 Test Item Value Reference Range Interpretation Comments WHITE BLOOD CELL (test code = 7.1 K/MM3 3.8-9.8 N WBC) RED BLOOD CELL (test code = 4.67 M/MM3 3.95-5.67 N RBC) HEMOGLOBIN (test code = HGB) 14.4 G/DL 12.4-16.7 N HEMATOCRIT (test code = HCT) 43.0 % 35.9-49.5 MEAN CELL VOLUME (test code = 92 fL 81.7-96.1 N MCV) MEAN CELL HGB (test code = MCH) 30.8 pg 27.6-33.2 N MEAN CELL HGB CONCETRATION 33.5 % 32.9-35.5 N (test code = MCHC) RED CELL DISTRIBUTION WIDTH 13.6 % 12.1-15.2 N (test code = RDW) PLATELET COUNT (test code = 155 K/MM3 129-368 N PLT) MEAN PLATELET VOLUME (test code 11.6 fl 7.4-10.4 H = MPV) NEUTROPHIL % (test code = NT%) 61.1 % 43-75 N IMMATURE GRANULOCYTE % (test 0.6 % 0.0-2.0 N code = IG%) LYMPHOCYTE % (test code = LY%) 24.8 % 14-44 N MONOCYTE % (test code = MO%) 10.6 % 4-13 N EOSINOPHIL % (test code = EO%) 2.1 % 0-6 N BASOPHIL % (test code = BA%) 0.8 % 0-2 N NUCLEATED RBC % (test code = 0.0 % 0-1.0 N NRBC%) NEUTROPHIL # (test code = NT#) 4.33 K/mm3 2.0-7.6 N IMMATURE GRANULOCYTE # (test 0.04 x10 3/uL 0-0.03 H code = IG#) LYMPHOCYTE # (test code = LY#) 1.76 K/mm3 1.0-3.8 N MONOCYTE # (test code = MO#) 0.75 K/mm3 0.1-0.8 N EOSINOPHIL # (test code = EO#) 0.15 K/mm3 0.0-0.2 N BASOPHIL # (test code = BA#) 0.06 K/mm3 0.0-0.2 N NUCLEATED RBC # (test code = 0.00 K/mm3 0.0-0.1 N NRBC#) BASIC METABOLIC [id number] 09:29:00 Test Item Value Reference Range Interpretation Comments SODIUM (test code = 139 MMOL/L 137-145 N NA) POTASSIUM (test code = 3.9 MMOL/L 3.5-5.1 N K) CHLORIDE (test code = 99 MMOL/L 98-107 N CL) CARBON DIOXIDE (test 29 MMOL/L 22-30 N code = CO2) GLUCOSE (test code = 95 MG/DL 74-106 N GLU) BLOOD UREA NITROGEN 24 MG/DL 9-20 H (test code = BUN) GLOMERULAR FILTRATION 52 Report ing units: RATE (test code = GFR) ml/mi n/1.73 m2 (Modified MDRD Formula)Referen ce Range: > or = 6 0 ml/min/1.73 m2 CREATININE (test code 1.30 MG/DL 0.66-1.25 H = CREAT) CALCIUM (test code = 8.7 MG/DL 8.4-10.2 N CA) [id number] 09:29:00 Test Item Value Reference Range Interpretation Comments MAGNESIUM (test code = MAG) 2.0 MG/DL 1.6-2.3 N BASIC METABOLIC [id number] 09:28:00 Test Item Value Reference Range Interpretation Comments SODIUM (test code = 139 MMOL/L 137-145 N NA) POTASSIUM (test code = 3.9 MMOL/L 3.5-5.1 N K) CHLORIDE (test code = 99 MMOL/L 98-107 N CL) CARBON DIOXIDE (test 29 MMOL/L 22-30 N code = CO2) GLUCOSE (test code = 95 MG/DL 74-106 N GLU) BLOOD UREA NITROGEN 24 MG/DL 9-20 H (test code = BUN) GLOMERULAR FILTRATION 52 Report ing units: RATE (test code = GFR) ml/mi n/1.73 m2 (Modified MDRD Formula)Referen ce Range: > or = 6 0 ml/min/1.73 m2 CREATININE (test code 1.30 MG/DL 0.66-1.25 H = CREAT) CALCIUM (test code = 8.7 MG/DL 8.4-10.2 N CA) [id number] 09:28:00 Test Item Value Reference Range Interpretation Comments MAGNESIUM (test code = MAG) MG/DL 1.6-2.3 BASIC METABOLIC [id number] 09:27:00 Test Item Value Reference Range Interpretation Comments SODIUM (test code = 139 MMOL/L 137-145 N NA) POTASSIUM (test code = 3.9 MMOL/L 3.5-5.1 N K) CHLORIDE (test code = 99 MMOL/L 98-107 N CL) CARBON DIOXIDE (test MMOL/L 22-30 code = CO2) GLUCOSE (test code = MG/DL 74-106 GLU) BLOOD UREA NITROGEN MG/DL 9-20 (test code = BUN) GLOMERULAR FILTRATION 52 Report ing units: RATE (test code = GFR) ml/mi n/1.73 m2 (Modified MDRD Formula)Referen ce Range: > or = 6 0 ml/min/1.73 m2 CREATININE (test code 1.30 MG/DL 0.66-1.25 H = CREAT) CALCIUM (test code = MG/DL 8.7-9.7 CA) [id number] 09:27:00 Test Item Value Reference Range Interpretation Comments MAGNESIUM (test code = MAG) MG/DL 1.6-2.3 BASIC METABOLIC [id number] 09:25:00 Test Item Value Reference Range Interpretation Comments SODIUM (test code = NA) 139 MMOL/L 137-145 N POTASSIUM (test code = K) 3.9 MMOL/L 3.5-5.1 N CHLORIDE (test code = CL) 99 MMOL/L 98-107 N CARBON DIOXIDE (test code = CO2) MMOL/L 22-30 GLUCOSE (test code = GLU) MG/DL 74-106 BLOOD UREA NITROGEN (test code = MG/DL 9-20 BUN) GLOMERULAR FILTRATION RATE (test code = GFR) CREATININE (test code = CREAT) MG/DL 0.66-1.25 CALCIUM (test code = CA) MG/DL 8.7-9.7 [id number] 09:25:00 Test Item Value Reference Range Interpretation Comments MAGNESIUM (test code = MAG) MG/DL 1.6-2.3 PROTHROMBIN [id number] 09:18:00 Test Item Value Reference Range Interpretation Comments PROTHROMBIN TIME 10.5 SECONDS 9.6-11.6 N PATIENT (test code = PTP) INTERNATIONAL NORMAL 1.0 0.8-1.1 N The INR is to be RATIO (test code = used only for INR) monitoring oral anticoagulantth erap y. INDICATION I NR VALUE ---- ---- ---- -------1. Prophylaxis, de ep venous thrombos is, including hig h risk surgery. 2.0 - 3.0 2. Prophylaxis, de ep venous thrombos is, hip surgery, treatment for d eep venous thrombosis or pulmonary prevention of systemic emboli sm in patients wit h valvular heart disease, atrial fibrillation, tissue heart va lve, or acute myocar dial infarction. 2.0 - 3 .0 3. Mechanical prosthesis hear t valves, recurrent syste yair embolism. 3.0 - 4.5 PTT [id number] 09:18:00 Test Item Value Reference Range Interpretation Comments PTT ACTIVATED (test code = APTT) 29.5 SECONDS 22.0-33.0 N CBC W/AUTO [id number] 09:01:00 Test Item Value Reference Range Interpretation Comments WHITE BLOOD CELL (test code = 7.3 K/MM3 3.8-9.8 N WBC) RED BLOOD CELL (test code = 5.05 M/MM3 3.95-5.67 N RBC) HEMOGLOBIN (test code = HGB) 15.8 G/DL 12.4-16.7 N HEMATOCRIT (test code = HCT) 48.0 % 35.9-49.5 N MEAN CELL VOLUME (test code = 95 fL 81.7-96.1 N MCV) MEAN CELL HGB (test code = MCH) 31.3 pg 27.6-33.2 N MEAN CELL HGB CONCETRATION 32.9 % 32.9-35.5 N (test code = MCHC) RED CELL DISTRIBUTION WIDTH 13.5 % 12.1-15.2 N (test code = RDW) PLATELET COUNT (test code = 168 K/MM3 129-368 N PLT) MEAN PLATELET VOLUME (test code 11.5 fl 7.4-10.4 H = MPV) NEUTROPHIL % (test code = NT%) 61.3 % 43-75 N IMMATURE GRANULOCYTE % (test 0.4 % 0.0-2.0 N code = IG%) LYMPHOCYTE % (test code = LY%) 25.3 % 14-44 N MONOCYTE % (test code = MO%) 10.5 % 4-13 N EOSINOPHIL % (test code = EO%) 1.8 % 0-6 N BASOPHIL % (test code = BA%) 0.7 % 0-2 N NUCLEATED RBC % (test code = 0.0 % 0-1.0 N NRBC%) NEUTROPHIL # (test code = NT#) 4.50 K/mm3 2.0-7.6 N IMMATURE GRANULOCYTE # (test 0.03 x10 3/uL 0-0.03 N code = IG#) LYMPHOCYTE # (test code = LY#) 1.86 K/mm3 1.0-3.8 N MONOCYTE # (test code = MO#) 0.77 K/mm3 0.1-0.8 N EOSINOPHIL # (test code = EO#) 0.13 K/mm3 0.0-0.2 N BASOPHIL # (test code = BA#) 0.05 K/mm3 0.0-0.2 N NUCLEATED RBC # (test code = 0.00 K/mm3 0.0-0.1 N NRBC#)
[2021-03-17 11:45] LABS: Urine Blood Trace-intact (Negative); Urine Glucose Negative (Negative); Urine Protein Negative (Negative); Urine pH 6.5 (5.0-7.0)
--- NOTE | 2021-03-17 12:16 | RAD REPORT ---
EXAM DESCRIPTION: CT - Spine Lumbar Wo Con - 03/17/2021 12:04 pm CLINICAL HISTORY: Radiculopathy. PAIN COMPARISON: No comparisons TECHNIQUE: Axial noncontrast CT imaging of the lumbar spine was performed with coronal and sagittal re-formatted images. All CT scans are performed using dose optimization technique as appropriate and may include automated exposure control or mA/KV adjustment according to patient size. FINDINGS: There is a very advanced degenerative dextroscoliosis of the lumbar spine present. There is loss of disc space with vacuum disc degeneration affecting T12-L1, L1-L2 L2-3, L3-4 and L4-5 . Moderate lower lumbar facet hypertrophy. No finding along which to suspect an acute lumbar spine fracture. No lytic blastic bone lesion is sunita dent. No paraspinal soft tissue mass or hematoma. IMPRESSION: No acute lumbar spine fracture is identified. Severe degenerative dextroscoliosis of the lumbar spine is present.
--- NOTE | 2021-03-17 13:16 | RAD REPORT ---
EXAM DESCRIPTION: RAD - Sacrum And Coccyx - 03/17/2021 1:03 pm CLINICAL HISTORY: PAIN COMPARISON: LUMBAR SPINE 3 VIEWS dated 04/13/2009; Spine Lumbar Wo Con dated 03/17/2021; Chest Abdomen Pelvis W Cont dated 08/14/2018; Bone Imaging Whole Body dated 05/29/2017 FINDINGS: The sacral and coccygeal bodies show no acute fracture change. No displacement or angulati on deformity. There are no lytic, sclerotic or expansile changes seen. No presacral soft tissue thick ening identifiable. Patient has prominent lower lumbar degenerative change that is separately detailed. L5 body is partia lly sacralized. There is mixed lytic and sclerotic change in the left sacral ala. This may be remodel ing from a prior sacral ala fracture. The [address] studies were reviewed and show this patter n did meet not clearly different over the 3 year interval. SI joint degenerative changes mild. IMPRESSION: No acute or suspicious findings involving the sacral or coccygeal bodies. Lytic and sclerotic change to the left sacral ala probably the affects of old fracture remodeling. Th is could be remodeling from treated metastatic lesion given the prostate cancer history. An active pr ocess is unlikely.
--- NOTE | 2021-03-17 13:23 | ER ---
Nurse's Notes [facility] Name: Javy Ferreira Age: 89 yrs Sex: Male : 1930 Arrival Date: 03/17/2021 Time: 10:32 Bed 23 Private MD: Diagnosis: Low back pain Presentation: 03/17 11:19 Chief complaint: Patient states: Low back pain that started this morning, reports hx of ph back pain but states that it was worse today, denies fever or urinary symptoms. Coronavirus screen: Client denies travel out of the [place] in the last 14 days. At this time, the client does not indicate any symptoms associated with coronavirus-19. Ebola Screen: No symptoms or risks identified at this time. Initial Sepsis Screen: Does the patient meet any 2 criteria? No. Patient's initial sepsis screen is negative. Does the patient have a suspected source of infection? No. Patient's initial sepsis screen is negative. Risk Assessment: Do you want to hurt yourself or someone else? Patient reports no desire to harm self or others. Onset of symptoms was March 17, 2021. 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 - Social history:: Smoking status: Patient denies any tobacco usage or history of. Screenin:17 Abuse screen: Denies threats or abuse. Nutritional screening: No deficits noted. ap3 Tuberculosis screening: No symptoms or risk factors identified. Fall Risk None identified. Assessment: 12:09 General: Appears in no apparent distress. comfortable, Behavior is calm, cooperative, ap3 appropriate for age. Pain: Complains of pain in low back area Pain does not radiate. Pain currently is 6 out of 10 on a pain scale. at worst was 10 out of 10 on a pain scale. Pain began HAS BEEN HAVING THIS PAIN FOR SEVERAL MONTHS. PAIN IS WORSE IN THE MORNING AND GETS BETTER THROUGHOUT THE DAY. Neuro: Level of Consciousness is awake, alert, obeys commands, Oriented to person, place, time, situation. Cardiovascular: Denies chest pain, Capillary refill < 3 seconds. Respiratory: Airway is patent Respiratory effort is even, unlabored, Respiratory pattern is regular, symmetrical. GI: No signs and/or symptoms were reported involving the gastrointestinal system. : No signs and/or symptoms were reported regarding the genitourinary system. EENT: No signs and/or symptoms were reported regarding the EENT system. Derm: No signs and/or symptoms reported regarding the dermatologic system. Musculoskeletal: Reports pain in low back area. 13:17 Reassessment: Patient and/or family updated on plan of care and expected duration. Pain ap3 level reassessed. Patient is alert, oriented x 3, equal unlabored respirations, skin warm/dry/pink. family at bedside. Vital Signs: 11:19 BP 157 / 91; Pulse 60; Resp 18; Temp 97.6; Pulse Ox 97% on R/A; Weight 83.46 kg; Height ph 5 ft. 9 in. (175.26 cm); 13:17 BP 157 / 86; Pulse 56; Pulse Ox 97% on R/A; ap3 11:19 Body Mass Index 27.17 (83.46 kg, 175.26 cm) ph ED Course: 10:32 Patient arrived in ED. ds1 11:20 Triage completed. ph 11:21 Arm band placed on Patient placed in waiting room, Patient notified of wait time. ph 11:29 Sarika Lanza [facility]NP-C [facility]. kb 11:29 Lars Loya MD is Attending Physician. kb 11:45 Gracie Wyatt, SOFIYA is Primary Nurse. ap3 12:04 CT Lumbar Spine Wo Con In Process Unspecified. EDMS 12:17 Patient has correct armband on for positive identification. Bed in low position. Call ap3 light in reach. Adult w/ patient. Pulse ox on. NIBP on. Door closed. Noise minimized. 13:03 Sacrum And Coccyx XRAY In Process Unspecified. EDMS 13:43 No provider procedures requiring assistance completed. Patient did not have IV access ap3 during this emergency room visit. Administered Medications: No medications were administered Outcome: 13:22 Discharge ordered by . kb 13:43 Discharged to home ambulatory, with family. ap3 13:43 Condition: good 13:43 Discharge instructions given to patient, family, Instructed on discharge instructions, follow up and referral plans. medication usage, Demonstrated understanding of instructions, follow-up care, medications, Prescriptions given X 1. 13:44 Patient left the ED. ap3 Signatures: Dispatcher [employer] EDMS Sarika Lanza, SHELBIE TOWNSEND-Abbey Sims ds1 Devika Higgins, RN RN Gracie Wyatt RN RN ap3
--- NOTE | 2021-03-17 13:23 | EDPHYS ---
Physician Documentation [facility] Name: Javy Ferreira Age: 89 yrs Sex: Male : 1930 Arrival Date: 03/17/2021 Time: 10:32 Bed 23 Private MD: ED Physician Lars Loya HPI: 03/17 16:27 This 89 yrs old Male presents to ER via Ambulatory with complaints of Back kb Pain. 16:27 The patient presents with pain that is acute, that is chronic, and tenderness. The kb symptoms are located in the low back, coccyx area. Onset: The symptoms/episode began/occurred "a while ago, but was worse this morning". The pain does not radiate. Associated signs and symptoms: The patient has no apparent associated signs or symptoms. The problem was sustained from a chronic condition. Modifying factors: The patient symptoms are alleviated by nothing, the patient symptoms are aggravated by any movement. Severity of symptoms: At their worst the symptoms were severe, in the emergency department the symptoms have improved, markedly. The patient has experienced similar episodes in the past. The patient has not recently seen a physician. Pt reports he normally has low back pain in the mornings, but this morning the pain was so bad he didn't think he was going to be able to get up. States he took 2 ibuprofen and it helped the pain. Called PCP's office to make appt and was told to come here for evaluation. . 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 - Social history:: Smoking status: Patient denies any tobacco usage or history of. ROS: 14:22 Constitutional: Negative for fever, chills, and weight loss. kb 14:22 Back: Positive for pain at rest, pain with movement, of the lumbar area and sacrum, Negative for injury or acute deformity, decreased range of motion, radiated pain. 14:22 All other systems are negative. Exam: 14:22 Constitutional: This is a well developed, well nourished patient who is awake, alert, kb and in no acute distress. Head/Face: Normocephalic, atraumatic. ENT: Moist Mucous membranes Respiratory: Respirations even and unlabored. No increased work of breathing, no retractions or nasal flaring. Abdomen/GI: Soft, non-tender. No distention Skin: Warm, dry with normal turgor. Normal color. MS/ Extremity: Pulses equal, no cyanosis. Neurovascular intact. Full, normal range of motion. Neuro: Awake and alert, GCS 15, oriented to person, place, time, and situation. Moves all extremities. Normal gait. Psych: Awake, alert, with orientation to person, place and time. Behavior, mood, and affect are within normal limits. 14:22 Back: pain, that is mild, of the lumbar area and sacrum, ROM is normal, vertebral tenderness, is appreciated at L4, L5 and sacrum. 16:31 Neuro: Exam negative for acute changes. kb Vital Signs: 11:19 BP 157 / 91; Pulse 60; Resp 18; Temp 97.6; Pulse Ox 97% on R/A; Weight 83.46 kg; Height ph 5 ft. 9 in. (175.26 cm); 13:17 BP 157 / 86; Pulse 56; Pulse Ox 97% on R/A; ap3 11:19 Body Mass Index 27.17 (83.46 kg, 175.26 cm) ph MDM: 11:29 Patient medically screened. kb 14:21 Data reviewed: vital signs, nurses notes. Data interpreted: Pulse oximetry: on room air kb is 97 %. Interpretation: normal. Counseling: I had a detailed discussion with the patient and/or guardian regarding: the historical points, exam findings, and any diagnostic results supporting the discharge/admit diagnosis, radiology results, the need for outpatient follow up, a family practitioner, to return to the emergency department if symptoms worsen or persist or if there are any questions or concerns that arise at home. ED course: daughter requested a prescription for pain medication because pt is not supposed to take NSAIDs. AUTOMOTIVE PRODUCT SPECIALIST aware reviewed, no history for pt. Tramadol prescribed for severe pain. Educated to continue tylenol as needed for mild/moderate pain. Pt has follow up appt scheduled with dr bob. 03/17 11:45 Order name: Urine Dipstick-Ancillary; Complete Time: 11:48 EDMS 03/17 11:48 Order name: CT Lumbar Spine Wo Con; Complete Time: 12:22 kb 03/17 11:48 Order name: Sacrum And Coccyx XRAY; Complete Time: 13:18 kb Administered Medications: No medications were administered Disposition: 18:30 Co-signature as Attending Physician, Lars Loya MD I agree with the assessment and tw4 plan of care. Disposition: 03/17/21 13:22 Discharged to Home. Impression: Low back pain. - Condition is Stable. - Discharge Instructions: Back Pain, Adult, [id number]. - Prescriptions for Tramadol 50 mg Oral Tablet - take 1 tablet by ORAL route every 8 hours as needed; 12 tablet. - Medication Reconciliation Form, Thank You Letter, Antibiotic Education, Prescription Opioid Use form. - Follow up: Emergency Department; When: As needed; Reason: Worsening of condition. Follow up: Private Physician; When: 2 - 3 days; Reason: Recheck today's complaints, Continuance of care, Re-evaluation by your physician. Signatures: Dispatcher [employer] EDMO Sarika Lanza, MORTGAGE ASSISTANT-C CARY-Devika Garrett, RN RN Lars Loya MD MD tw4 Gracie Wyatt RN RN ap3 Corrections: (The following items were deleted from the chart) 13:44 13:22 03/17/2021 13:22 Discharged to Home. Impression: Low back pain. Condition is ap3 Stable. Forms are Medication Reconciliation Form, Thank You Letter, Antibiotic Education, Prescription Opioid Use. Follow up: Emergency Department; When: As needed; Reason: Worsening of condition. Follow up: Private Physician; When: 2 - 3 days; Reason: Recheck today's complaints, Continuance of care, Re-evaluation by your physician. kb
[2021-03-17 13:48] VITALS: TEMP 97.6; O2SAT 97
[2021-03-17 13:49] VITALS: BP 157/86
== END 2021-03-17 13:44 | disposition home or self-care (01) ==
LOC: ER 10:29
DX: M54.5 Low back pain (principal); Z95.0 Presence of cardiac pacemaker; Z85.46 Personal history of malignant neoplasm of prostate
CPT/HCPCS: 72131; 72220; 81003; 99283